=== PATIENT | female | born 2000 | race Caucasian/White ===

== ENCOUNTER 2023-06-21 15:53 | Emergency (ER) | payer OTHER ==
[~2023-06-21] VITALS: Ht 152.4 cm; Wt 68.0 kg
[2023-06-21 16:48] VITALS: BP 117/68; PULSE 83; RESP 16; TEMP 97.1; O2SAT 99
[2023-06-21] MEDS ORDERED: IBUPROFEN 600 MG TAB PO ONE (18:30)
[2023-06-21 18:45] LABS: BASOPHILS # (AUTO) 0.1 K/uL (0.00-0.22); BASOPHILS % (AUTO) 0.6 % (0.0-2.0); EOSINOPHILS # (AUTO) 0.3 K/uL (0-0.4); HEMATOCRIT 41.7 % (36-48); HEMOGLOBIN 14.4 g/dL (12.0-16.0); MEAN CORPUSCULAR HEMOGLOBIN 34 pg (27-31); MEAN CORPUSCULAR HGB CONC 35 g/dL (33-37); MEAN CORPUSCULAR VOLUME 97.4 fL (80-94); MONOCYTES # (AUTO) 0.8 K/uL (0.8-1.0); MONOCYTES % (AUTO) 9.2 % (1.7-9.3); NEUTROPHILS # (AUTO) 4.9 K/uL (1.8-7.7); NEUTROPHILS % (AUTO) 54.2 % (42.2-75.2); PLATELET COUNT (AUTO) 200 K/uL (140-450); RED BLOOD CELL COUNT(AUTO) 4.28 MIL/uL (4.20-5.40); RED CELL DISTRIBUTION WIDTH 13.1 % (11.6-13.7)
[2023-06-21] MEDS ORDERED: OFLO5SOL27 RIGHT EAR (19:08)
[2023-06-21] MEDS ORDERED: IBUP-1842 PO (19:08)
[2023-06-21 19:13] LABS: CALCIUM 9.3 mg/dL (8.5-10.1); CARBON DIOXIDE 29.2 mmol/L (21-32); CREATININE 0.8 mg/dL (0.6-1.3); POTASSIUM 4.2 mmol/L (3.5-5.1)
[2023-06-21 19:30] LABS: ALBUMIN 3.7 g/dL (3.4-5.0); BILIRUBIN,DIRECT 0.1 mg/dL (0.0-0.3); THYROID STIMULATING HORMONE 3.77 uIU/mL (0.34-3.74); TOTAL BILIRUBIN 0.4 mg/dL (0.0-1.0); TOTAL PROTEIN, SERUM 9.1 g/dL (6.4-8.2)
[2023-06-21 19:46] VITALS: BP 120/80; PULSE 82; RESP 16; TEMP 98.3; O2SAT 100
== END 2023-06-21 19:46 | disposition home or self-care (01) ==
LOC: MED 15:53
DX: H66.91 Otitis media, unspecified, right ear (principal); H60.91 Unspecified otitis externa, right ear; Z79.899 Other long term (current) drug therapy; Z79.1 Long term (current) use of non-steroidal anti-inflammatories (NSAID)
CPT/HCPCS: 36415; 80048; 80076; 81025; 84443; 85025; 99283